=== PATIENT | male | born 1995 | race Caucasian/White ===

== ENCOUNTER 2023-04-09 19:34 | Emergency (ER) | payer SELFPAY ==
[2023-04-09] MEDS ORDERED: Lidocaine 1% 5 ML VIAL INJECT ONE (19:49)
[2023-04-09] MEDS ORDERED: Diphtheria,Pertussis(Acell),Tetanus Vaccine 0.5 ML Syringe IM ONE (19:51)
[2023-04-09] MEDS ORDERED: Bacitracin Oint 1 GM U/D Packet TOP ONE (20:07)
== END 2023-04-09 20:16 | disposition home or self-care (01) ==
LOC: DL.ED 19:34
DX: S61.216A Laceration without foreign body of right little finger without damage to nail, initial encounter (principal); Z91.048 Other nonmedicinal substance allergy status; W26.8XXA Contact with other sharp object(s), not elsewhere classified, initial encounter
CPT/HCPCS: 12001; 90471; 90715; 99282; 99282-25; A9270-GY; J3490